=== PATIENT | female | born 1965 | race Caucasian/White ===

== ENCOUNTER → 2017-07-30 | Outpatient (CLI) | payer OTHER | LOC: BRMIMAGING 09:51 | DX: N60.01 Solitary cyst of right breast (principal) | CPT/HCPCS: 76641-PO; G0204 ==

== ENCOUNTER → 2018-08-12 | Outpatient (CLI) | payer OTHER | LOC: BRMIMAGING 07:58 | DX: Z12.31 Encounter for screening mammogram for malignant neoplasm of breast (principal) ==